=== PATIENT | female | born 1935 | race Caucasian/White ===

== ENCOUNTER 2021-06-02 10:46 | Emergency (ER) | payer MEDICARE ==
[~2021-06-02] VITALS: Ht 165.1 cm; Wt 59.1 kg
[2021-06-02] MEDS ORDERED: LEVOTHYROXIN75 MCG PO (11:32)
[2021-06-02 13:39] VITALS: BP 179/91
== END 2021-06-02 13:44 | disposition home or self-care (01) ==
LOC: ED 10:46
PROC: 2W3DX1Z Immobilization of Left Lower Arm using Splint (ICD-10-PCS; principal; 2021-06-02)
DX: S52.512A Displaced fracture of left radial styloid process, initial encounter for closed fracture (principal); E03.9 Hypothyroidism, unspecified; X58.XXXA Exposure to other specified factors, initial encounter